=== PATIENT | female | born 1940 | race Hispanic/Latino ===

== ENCOUNTER 2016-03-17 08:09 | Emergency (ER) | payer BC ==
[2016-03-17] MEDS ORDERED: ORPHENADRINE 60 MG/2 ML AMP ONE (09:07)
== END 2016-03-17 10:59 | disposition home or self-care (01) ==
LOC: ER 08:09
DX: S20.212A Contusion of left front wall of thorax, initial encounter (principal); S50.02XA Contusion of left elbow, initial encounter; S80.02XA Contusion of left knee, initial encounter; W01.0XXA Fall on same level from slipping, tripping and stumbling without subsequent striking against object, initial encounter; Y93.E5 Activity, floor mopping and cleaning; Y92.019 Unspecified place in single-family (private) house as the place of occurrence of the external cause
CPT/HCPCS: 96372